=== PATIENT | female | born 1960 | race Caucasian/White ===

== ENCOUNTER 2016-11-23 12:01 | Emergency (ER) | payer OTHER ==
[~2016-11-23 12:01] MED LIST: CA C1TAB79 PO; CITA10TA9 PO; OXYB15TA PO; PROG100C3 PO
--- NOTE | 2016-11-23 12:08 | ED.REPORT ---
HPI-General Illness Date of Service Nov 23, 2016 ED Provider: Matthew Terrazas Patient is a 56 year old female with a hx of pyelonephritis who presents to the ED complaining of a worsening flank pain onset 4 days ago. Associated symptoms include a fever of 101 and myalgia. She was seen at [facility] physicians yesterday and prescribed levofloxacin 750mg once a day. A urine culture was done at this visit. She denies dysuria, diarrhea, vomiting, SOB, cough, or any other symptoms. Nursing Notes Stated Complaint: KIDNEY INFECTION Nursing Notes Reviewed: Yes Allergies: Coded Allergies: Honey Bee (Verified Allergy, Severe, ANAPHYLAXIS, 10/19/13) Penicillins (Verified Allergy, Severe, HIVES, 10/19/13) Scheduled Ca Carb/D3/Soy/Horset/Lactobac (Estromineral Caplet) 1 Each Tablet 1 EACH PO DAILY Citalopram (Citalopram) 10 Mg Tablet 10 MG PO DAILY Oxybutynin Chloride ER (Oxybutynin Chloride ER) 15 Mg Tab.er.24 15 MG PO DAILY Progesterone,Micronized (Prometrium) 100 Mg Capsule 100 MG PO DAILY General Time Seen by MD: 12:07 Chief Complaint Other (Flank Pain ) Hx Obtained From: Patient Arrived By: Walk-in Sudden in Onset?: Yes Onset Occurred: 4 days ago Symptom Duration: Since onset Quality: Painful Severity: Current: Moderate Severity: Maximum: Moderate Recent Healthcare: Recent doctor visit Similar Sx Previous: Yes Past Medical History Past Medical History Depression Anxiety pyelonephritis Past Surgical History Bladder sling Smoking History Former Smoker Social History Alcohol Use: 1-3 per day Ambulatory Status Independent Review of Systems Full Review of Systems Constitutional: Reports: Fever Respiratory: Denies: Non-productive cough, Shortness of breath GI: Denies: Diarrhea, Vomiting Female: Reports: Flank pain, Denies: Dysuria Musculoskeletal: Reports: Myalgia Complete sys rev & neg: except as marked. Physical Exam Vital Signs Vital Signs Date Time Temp Pulse Resp B/P Pulse Ox O2 Delivery O2 Flow Rate FiO2 11/23/16 12:16 37.1 86 18 148/98 Initial VS: Reviewed, Vital signs abnormal Head / Eyes: Atraumatic, Normocephalic Neck: Full range of motion Skin: Warm, Dry Neurologic: Alert, Oriented, Nonfocal General/Constitutional: Awake, Alert, No acute distress Respiratory / Chest: Atraumatic, Breath sounds NL, Breath sounds = bilat, No respiratory distress Cardiovascular: Heart rate NL, Regular rhythm, Heart sounds NL Abdomen: Atraumatic, Soft, No guarding, No rebound Mild diffuse abdominal tenderness Back: Atraumatic Mild CVA tenderness Lower Extremity / Pelvis / MS: No edema Interpretation & Diagnostics Lab Results Interpretation Result Diagram: 11/23/16 1235 11/23/16 1235 Test 11/23/16 12:35 White Blood Count 10.9th/mm3 (3.8-10.1) Red Blood Count 4.07mil/mm3 (3.90-5.20) Hemoglobin 12.8g/dL (12.0-15.6) Hematocrit 38.5% (35.0-46.0) Mean Corpuscular Volume 94.6fL (81-100) Mean Corpuscular Hemoglobin 31.4pg (27.0-35.0) Mean Corpuscular Hemoglobin Concent 33.2% (32.0-37.0) Red Cell Distribution Width 13.1% (12.3-15.4) Platelet Count 228bil/L (150-400) Neutrophils (%) (Auto) 79.3% (40-74) Lymphocytes (%) (Auto) 9.6% (14-46) Monocytes (%) (Auto) 10.5% (4-12) Eosinophils (%) (Auto) 0.2% (0-5) Basophils (%) (Auto) 0.1% (0-3) Sodium Level 136mEq/L (134-144) Potassium Level 4.3mEq/L (3.5-5.2) Chloride Level 98mEq/L (97-108) Carbon Dioxide Level 22mmol/L (18-29) Blood Urea Nitrogen 11mg/dL (6-24) Creatinine 0.82mg/dL (0.57-1.00) Estimat Glomerular Filtration Rate 104mL/min (>59) Glucose Level 101mg/dL (60-99) Calcium Level 8.8mg/dL (8.5-10.1) Total Bilirubin 0.5mg/dL (0.0-1.2) Aspartate Amino Transf (AST/SGOT) 21U/L (0-50) Alanine Aminotransferase (ALT/SGPT) 13U/L (0-32) Alkaline Phosphatase 61U/L (25-150) Total Protein 6.8g/dL (6.4-8.4) Albumin 3.7g/dL (3.4-5.0) Procalcitonin 0.06ng/mL (0.00-0.08) Hold Aquino Top Tube Received (Received) X-Ray Chest Interpretation Chest Xray Interpretation: IMPRESSION: No acute cardiopulmonary disease. Dictated by: Harinder Ash M.D. on 11/23/2016 at 13:33 Approved by: Harinder Ash M.D. on 11/23/2016 at 13:33 View: AP & lat Interpretation / Wet Read by: Interpret - Radiologist Re-Eval/Medical Decision Time of Eval: 13:46 Patient Status: Condition improved Re-Evaluation/Progress Note: Patient feels somewhat improved after Tylenol. Relieved to hear that testing and examination are normal. Consultation : Consulted With: Primary care physician Call Returned at: 12:21 Note: Discussed pt's case with on-call physician for pt's PCP. He cannot see that a culture was ordered. Will double check and call back. Counseled Regarding: Diagnosis, Lab results, Need for follow-up, When/why to return to ED Discharge & Departure Primary Impression: Pyelonephritis Disposition: Home Discharge Condition All VS Reviewed: Yes Condition: Stable Patient Instructions: Kidney Infection (ED) Additional Instructions: No dangerous condition is discovered. No evidence of pneumonia. Urine culture is not yet resulted but is pending. Continue Tylenol and naproxen as needed for pain. Keep yourself well hydrated. The antibiotic you are taking, Levaquin , is almost uniformly effective for urinary tract infections such as yours. Follow-up with your doctor next week, sooner if worse. Referrals: Krystle Meza MD (PCP) [place] Attestation Portions of this note were transcribed by Brittney Richardson. I, Dr. Terrazas personally performed the history, physical exam and medical decision-making; I reviewed and confirmed the accuracy of the information in the transcribed note. Signed by: Kelton Moore, 11/23/16 copies to: Krystle Meza MD, Kirk H MD Nov 23, 2016 12:08 BRITTNEY RICHARDSON Nov 23, 2016 12:21
[2016-11-23 12:16] VITALS: BP 148/98; PULSE 86; RESP 18
[2016-11-23] MEDS ORDERED: 0.9% Sodium Chloride 1,000 ML IV ONE (12:20)
[2016-11-23 12:50] LABS: BASOPHILS % (AUTO) 0.1 % (0-3); EOSINOPHILS % (AUTO) 0.2 % (0-5); MONOCYTES % (AUTO) 10.5 % (4-12); Mean Corpuscular Hemoglobin 31.4 pg (27.0-35.0); Mean Corpuscular Volume 94.6 fL (81-100); NEUTROPHILS % (AUTO) 79.3 % (40-74); Platelet Count 228 bil/L (150-400)
--- NOTE | 2016-11-23 13:35 | DRSVH ---
PROCEDURE: X-RAY CHEST, TWO VIEWS ([id number]) INDICATIONS: fever TECHNIQUE: 2 views of the chest were acquired. COMPARISON: None. FINDINGS: Surgical changes and devices: None. Lungs and pleura: No pleural effusions or pneumothorax. Lungs are clear. Mediastinum: Mediastinal contours are normal. Heart size is normal. Bones and chest wall: No suspicious bony abnormalities. Soft tissues appear unremarkable. IMPRESSION: No acute cardiopulmonary disease. Dictated by: Harinder Ash M.D. on 11/23/2016 at 13:33 Approved by: Harinder Ash M.D. on 11/23/2016 at 13:33
[2016-11-23 14:46] VITALS: BP 118/63; PULSE 80
== END 2016-11-23 14:20 | disposition home or self-care (01) ==
LOC: SED 12:01
DX: N12 Tubulo-interstitial nephritis, not specified as acute or chronic (principal); R50.9 Fever, unspecified; M79.1 Myalgia; F41.8 Other specified anxiety disorders; Z87.891 Personal history of nicotine dependence; Z88.0 Allergy status to penicillin; Z91.030 Bee allergy status
CPT/HCPCS: 36415; 71020; 80053; 84145; 85025; 96360; 99284; J7030